=== PATIENT | female | born 1940 | race Asian ===

== ENCOUNTER 2016-03-31 22:50 | Emergency (ER) | payer MEDICARE, MEDICAID ==
[~2016-03-31] VITALS: Ht 154.9 cm; Wt 63.6 kg
[~2016-03-31 22:50] MED LIST: ATOR80TA77 PO; CARV6.252 PO; CLOP75TA28 PO; DIGO125T16 PO; DORZ10DR20 OP; FUR20 PO; INSU100V7 SUBQ; LEVO75TA4 PO; LISI-571 PO; METF500T4 PO; NITR0.4T6 SL; POTA20LI2 PO
[2016-03-31 22:57] VITALS: BP 184/49; PULSE 58; RESP 24; O2SAT 99
--- NOTE | 2016-03-31 23:01 | ED.REPORT ---
HPI-Abd Pain F 40 and Over Date of Service Mar 31, 2016 ED Provider: MD Moises This is a 75 year old female with a history of DM, CAD, CABG, anticoagulated on Coumadin brought to the ED by EMS complaining of sudden onset periumbilical abdominal pain that began 1 hour ago. Described as sharp and stabbing. Followed by one episode emesis. Denies hematemesis. Abdominal pain resolved after emesis but then returned 20 minutes later. She had another episode of emesis afterward. Abdominal pain and nausea is now resolved. Denies dysuria, fever, chills, chest pain, SOB or cough. Nursing Notes Stated Complaint: ABDOMINAL PAIN Chief Complaint: Female Abdominal Pain Nursing Notes Reviewed: Yes Allergies: Coded Allergies: potassium (Verified Allergy, Mild, Rash, 03/31/16) Only tablets. Pt takes liquid KCL without any complications. Scheduled Atorvastatin Calcium (Atorvastatin Calcium) 80 Mg Tablet 80 MG PO HS Carvedilol (Carvedilol) 6.25 Mg Tablet 6.25 MG PO BIDBL Cephalexin (Keflex) 500 Mg Capsule 500 MG PO QID Clopidogrel (Clopidogrel) 75 Mg Tablet 75 MG PO HS Digoxin (Digox) 125 Mcg Tablet 125 MCG PO DAILY Dorzolamide HCl/Timolol Maleat (Dorzolamide-Timolol Eye Drops) 10 Ml Drops 1 GTT OP TID Furosemide (Furosemide) 20 Mg Tab 20 MG PO AM Insulin Glargine (Lantus U100 Insulin Vial) 100 Unit/Ml Vial 40 UNIT SUBQ BID Levothyroxine (Levothyroxine) 75 Mcg Tablet 75 MCG PO AM Lisinopril (Lisinopril) 5 Mg Tablet 5 MG PO DAILY Metformin (Metformin) 500 Mg Tablet 1,000 MG PO BIDBL Potassium Chloride (Potassium Chloride) 20 Meq/15 Ml Liquid 1.5 TSP PO DAILY Scheduled PRN Nitroglycerin SL (Nitroglycerin SL) 0.4 Mg Tab.subl 0.4 MG SL PRN PRN PRN For Chest Pain Ondansetron ODT (Zofran ODT) 4 Mg Tablet 4 MG PO Q4H PRN PRN For Nausea General Time Seen by MD: 22:56 Chief Complaint Abdominal pain Hx Obtained From: Patient Arrived By: Ambulance Sudden in Onset?: Yes Onset Occurred: Just prior to arrival Symptom Duration: Since onset Severity: Current: No pain currently Pertinent Negative: Pt denies other symptoms Recent Healthcare: No recent doctor visit, No recent hospitalization Similar Sx Previous: No Past Medical History Past Medical History Reports: Coronary artery disease, Diabetes mellitus Past Surgical History CABG Angioplasty in 1996 Multiple cardiac stents Family History Diabetes Smoking History Never Smoker Social History Alcohol Use: Denies alcohol use Drug Use: Denies drug use Ambulatory Status Independent Review of Systems Constitutional: Denies: Chills, Fever Respiratory: Denies: Non-productive cough, Shortness of breath Cardiovascular: Denies: Chest pain GI: Reports: Abdominal pain, Nausea, Vomiting, Denies: Constipation, Diarrhea Female: Denies: Dysuria Complete sys rev & neg: except as marked. Physical Exam Vital Signs Vital Signs (First) Date Time Temp Pulse Resp B/P Pulse Ox O2 Delivery O2 Flow Rate FiO2 03/31/16 22:57 36.6 58 24 184/49 99 Room Air Initial VS: Reviewed Head / Eyes: Atraumatic, Normocephalic, PERRL ENT: Mucous membranes moist, Conjunctiva normal, No scleral icterus Neck: Supple, Non-tender, Full range of motion Extremities: Vascular intact, Neuro intact, No swelling, No tenderness Skin: Warm, Dry, No cyanosis Neurologic: Alert, Oriented, Nonfocal Psychiatric: Mood/affect normal, Behavior normal, Normal thought content General/Constitutional: Awake, Alert Respiratory / Chest: Breath sounds NL, Breath sounds = bilat, No respiratory distress, No rales, No rhonchi, No wheezing, No stridor Well-healed midline sternal scar Cardiovascular: Heart rate NL, Regular rhythm, Heart sounds NL, Peripheral circulation NL Abdomen: Soft, Non-tender, No guarding, No rebound, BS normoactive Back: Inspection NL, Non-tender, No CVA tenderness Interpretation & Diagnostics CT ABDOMEN PELVIS CONCLUSION: Probable gastroenteritis or ileus with scattered fluid levels in the bowel. Uterine mass is nonspecific, may be a fibroid, neoplasm is not excluded. Small hiatal hernia, fatty liver, and right adrenal nodule. Radiologist: uRbi Turk MD Lab Results Interpretation Result Diagram: 03/31/16 2320 03/31/16 2300 Test 03/31/16 23:00 03/31/16 23:20 03/31/16 23:40 Prothrombin Time 9.3sec (8.1-12.5) Prothromb Time International Ratio 0.87ratio Sodium Level 136mEq/L (134-144) Potassium Level 4.3mEq/L (3.5-5.2) Chloride Level 99mEq/L (97-108) Carbon Dioxide Level 25mmol/L (18-29) Blood Urea Nitrogen 28mg/dL (8-27) Creatinine 0.90mg/dL (0.57-1.00) Estimat Glomerular Filtration Rate 87mL/min (>59) Glucose Level 167mg/dL (60-99) Calcium Level 9.6mg/dL (8.5-10.1) Magnesium Level 1.8mg/dL (1.6-2.6) Total Bilirubin 0.4mg/dL (0.0-1.2) Aspartate Amino Transf (AST/SGOT) 17U/L (0-50) Alanine Aminotransferase (ALT/SGPT) 20U/L (0-32) Alkaline Phosphatase 57U/L (25-165) Total Protein 7.1g/dL (6.4-8.4) Albumin 4.5g/dL (3.4-5.0) Lipase 60U/L (13-60) White Blood Count 9.4th/mm3 (3.8-10.1) Red Blood Count 4.29mil/mm3 (3.90-5.20) Hemoglobin 12.5g/dL (12.0-15.6) Hematocrit 36.8% (35.0-46.0) Mean Corpuscular Volume 85.8fL (81-100) Mean Corpuscular Hemoglobin 29.1pg (27.0-35.0) Mean Corpuscular Hemoglobin Concent 34.0% (32.0-37.0) Red Cell Distribution Width 12.8% (12.3-15.4) Platelet Count 258bil/L (150-400) Neutrophils (%) (Auto) 52.8% (40-74) Lymphocytes (%) (Auto) 37.1% (14-46) Monocytes (%) (Auto) 7.8% (4-12) Eosinophils (%) (Auto) 1.7% (0-5) Basophils (%) (Auto) 0.4% (0-3) Hold Blue Top Tube Received (Received) Hold [place] Top Tube Received (Received) Hold [place] Top Tube Received (Received) Urine Color Yellow (YELLOW) Urine Appearance Clear (CLEAR,HAZY) Urine pH 5.5 (5.0-8.0) Urine Specific [place] 1.025 (1.003-1.035) Urine Protein Negativemg/dL (NEG,TRACE) Urine Glucose (UA) Negativemg/dL (NEGATIVE) Urine Ketones Negativemg/dL (NEGATIVE) Urine Occult Blood Trace (NEGATIVE) Urine Nitrite Negative (NEGATIVE) Urine Bilirubin Negative (NEGATIVE) Urine Urobilinogen Normalmg/dL (NORMAL) Urine Leukocyte Esterase Small (NEGATIVE) Urine RBC 0-2/hpf (0-2) Urine WBC 11-50/hpf (0-5) Urine Epithelial Cells Many/hpf (NONE-MOD) Urine Crystals None seen (NONE SEEN) Urine Bacteria None/hpf (NONE-FEW) Urine Hyaline Casts None/lpf (NONE) Urine Granular Casts None seen (NONE SEEN) Urine Waxy Casts None seen (NONE SEEN) Urine Red Blood Cell Casts None seen (NONE SEEN) Urine White Blood Cell Casts None seen (NONE SEEN) Urine Mucus None seen (None Seen) Urine Trichomonas None seen (NONE SEEN) Urine Yeast None (NONE SEEN) Urine Culture Reflexed Indicated Re-Eval/Medical Decision Med Decision/Clinical Course 75-year-old female with extensive cardiac history here with abdominal pain, nausea, vomiting which was sudden onset this evening. Differential diagnosis includes but is not limited to AAA versus gastroenteritis versus pancreatitis versus urinary tract infection. CBC is normal. CMP has mildly elevated BUNs, but otherwise unremarkable. CT scan shows mild ileus. There is no evidence of AAA. Patient was able to tolerate by mouth in the emergency department. She does have a urinary tract infection which was treated in the emergency department with Rocephin. She was discharged with a prescription for Keflex, along with a prescription for Zofran. She has been given very strict return precautions and is aware and amenable to discharge at this time with follow-up with her primary care physician. Re-Evaluation/Progress #1: Time of Eval: 01:55 Re-Evaluation/Progress Note: Re-checked, failed PO challenge. Re-Evaluation/Progress #2: Time of Eval: 03:21 Re-Evaluation/Progress Note: Tolerated PO, plan for discharge, pt understands and agrees with plan, all questions addressed. Counseled Regarding: Diagnosis, Lab results, Need for follow-up, When/why to return to ED Discharge & Departure Primary Impression: Urinary tract infection Urinary tract infection type: site unspecified Hematuria presence: without hematuria Qualified Code: N39.0 - Urinary tract infection, site not specified Additional Impression: Vomiting Vomiting type: unspecified Vomiting Intractability: non-intractable Nausea presence: with nausea Qualified Code: R11.2 - Nausea with vomiting, unspecified Disposition: Home Discharge Condition All VS Reviewed: Yes Condition: Stable Patient Instructions: Urinary Tract Infection in Women (ED) Additional Instructions: Follow-up with your primary care provider. Return to the emergency department for any new or worsening symptoms Referrals: Blair Mac (PCP) Scribe Attestation Portions of this note were transcribed by Armando Bella. I, Dr. De Leon personally performed the history, physical exam and medical decision-making; I reviewed and confirmed the accuracy of the information in the transcribed note. Signed by: brad To. 03/31/2016, 02:00. Marian De Leon MD Mar 31, 2016 23:01 ARMANDO BELLA Mar 31, 2016 23:09
[2016-03-31] MEDS ORDERED: Ondansetron 2 mg/mL 2 mL Inj IVPUSH ONE (23:10)
[2016-03-31 23:36] LABS: INR 0.87 ratio
[2016-03-31 23:43] LABS: BASOPHILS % (AUTO) 0.4 % (0-3); EOSINOPHILS % (AUTO) 1.7 % (0-5); MONOCYTES % (AUTO) 7.8 % (4-12); Mean Corpuscular Hemoglobin 29.1 pg (27.0-35.0); Mean Corpuscular Volume 85.8 fL (81-100); NEUTROPHILS % (AUTO) 52.8 % (40-74); Platelet Count 258 bil/L (150-400)
[2016-03-31 23:45] LABS: Magnesium 1.8 mg/dL (1.6-2.6)
[2016-04-01] MEDS ORDERED: HYDROmorphone 0.5 mg/0.5 mL iSecure Syringe IVPUSH ONE
[2016-04-01] MEDS ORDERED: Ondansetron 2 mg/mL 2 mL Inj IVPUSH ONE (00:05)
[2016-04-01 00:06] LABS: APPEARANCE,URINE CLEAR (CLEAR,HAZY); COLOR,URINE YELLOW (YELLOW); OCCULT BLOOD,URINE TRACE (NEGATIVE); PH,URINE 5.5 (5.0-8.0); UROBILINOGEN,URINE NORMAL (NORMAL)
[2016-04-01] MEDS ORDERED: cefTRIAXone Inj 1,000 MG in IV Premix 1 EACH IV ONE (00:15)
[2016-04-01 00:28] VITALS: BP 185/55; PULSE 64; RESP 16; O2SAT 93
[2016-04-01 00:59] VITALS: BP 176/48; PULSE 59; RESP 13; O2SAT 94
[2016-04-01] MEDS ORDERED: Promethazine Inj 12.5 MG in Dextrose 5%-Pha MIX 50 ML IV ONE (02:00)
[2016-04-01 02:25] VITALS: BP 192/45; PULSE 59; RESP 12; O2SAT 100
[2016-04-01] MEDS ORDERED: ONDA4TAB9 PO (03:19)
[2016-04-01] MEDS ORDERED: CEPH-512 PO (03:19)
[2016-04-01 03:34] VITALS: BP 150/55; PULSE 59; RESP 17; O2SAT 99
--- NOTE | 2016-04-01 09:09 | DRSVH ---
PROCEDURE: CT ABDOMEN AND PELVIS WITH CONTRAST ([id number]) INDICATIONS: 75-year-old woman with epigastric pain. TECHNIQUE: After the administration of oral and intravenous contrast, 5 mm thick sections acquired from the diap hragm to the symphysis. 5 mm coronal and sagittal reformats were acquired. For radiation dose reduc tion, the following was used: automated exposure control, adjustment of mA and/or kV according to pa tient size. COMPARISON: [facility], , CHEST 1VW (PORTABLE), 02/17/2014, 22:30. FINDINGS: Image quality: Excellent. ABDOMEN: Lung bases: Mild bibasilar atelectasis. Heart size is mildly increased. Probable mild concentric thi ckening at the GE junction versus small hiatal hernia. Solid organs: Liver and spleen are normal in size and enhancement. Gallbladder is surgically absent . Biliary system is non dilated. Pancreas enhances normally. There is a 1.2 cm right adrenal nodule which demonstrates CT density 116 HU. Kidneys demonstrate normal size and enhancement, without hydr onephrosis. There is renal cortical scar in the upper pole of the left kidney. Peritoneum and bowel: Bowel loops demonstrate normal wall thickness and caliber. Fluid-filled small bowel and colon loops are noted. There is subtle increased mucosal enhancement in colon. Appendix is identified and has normal appearance. No free fluid or air. Nodes and vessels: No retroperitoneal or mesenteric adenopathy by size criteria. Aorta and inferior vena cava are normal in size. There is moderate to severe aortic and iliac artery calcification con sistent with atherosclerosis. Miscellaneous: No ventral hernias. PELVIS: Genitourinary: Bladder wall thickness is normal. There is a 4 cm heterogeneous enhancing mass in ut erus, probably a uterine fibroid. Miscellaneous: No inguinal hernias or adenopathy. Bones: No suspicious bony lesions. No vertebral body compression fractures. Mild scoliosis. Degene rative changes in lumbar spine. IMPRESSION: 1. Fluid-filled small bowel and colon loops which demonstrate normal caliber. This finding is nonspec ific and may be secondary to enterocolitis. Recommend clinical correlation. 2. ? Concentric thickening at GE junction versus small hiatal hernia. If clinically indicated, upper endoscopy or esophagram may be helpful. 3. Moderate to severe atherosclerosis. 4. A 1.2 cm right adrenal nodule. Adrenal protocol CT or MRI is suggested for further evaluation. 5. A 4 cm mass in uterus, probably a uterine fibroid. No significant discrepancy with the information systems consultant radiology preliminary report. Dictated by: Marcelo Culp M.D. on 04/01/2016 at 8:07 Approved by: Marcelo Culp M.D. on 04/01/2016 at 9:07
== END 2016-04-01 03:35 | disposition home or self-care (01) ==
LOC: SED 22:50
DX: N39.0 Urinary tract infection, site not specified (principal); R11.2 Nausea with vomiting, unspecified; E11.9 Type 2 diabetes mellitus without complications; I25.10 Atherosclerotic heart disease of native coronary artery without angina pectoris; Z95.1 Presence of aortocoronary bypass graft; Z79.4 Long term (current) use of insulin; Z79.84 Long term (current) use of oral hypoglycemic drugs
CPT/HCPCS: 36415; 74177; 80053; 81000; 83690; 83735; 85025; 85610; 87086; 87088; 96365; 96375; 96376; 99285; J0696; J1170; J2405; Q9967

== ENCOUNTER → 2016-11-08 | Day surgery (SDC) | payer MEDICARE, MEDICAID ==
[2016-11-08] VITALS (8 sets, daily range): BP systolic 152–165; BP diastolic 48–68; PULSE 51–62; RESP 19–22; O2SAT 98
[~2016-11-08] VITALS: Ht 154.9 cm; Wt 67.2 kg
[~2016-11-08] MED LIST changes: +0.9% Sodium Chloride 250 ML BOLUS IV PRN; +0.9% Sodium Chloride 400 ML (4 HRS) IV ONE; +Atropine 1 mg/10 mL (Code) Syringe IVPUSH PRN; +CEPH-512 PO; +CYAN500 PO; +Heparin 1,000 Unit/mL 10 mL Inj ONE; +Heparin 10,000 Unit/1,000 mL NS Premix IV ONE; -METF500T4 PO; +ONDA4TAB9 PO; +Ondansetron 2 mg/mL 2 mL Inj IVPUSH PRN; +Sodium Chloride LOK Flush 10 mL Syringe IVFLUSH PRN; +fentaNYL-PF 50 mCg/mL 2 mL Inj ONE
[2016-11-08 09:34] LABS: BASOPHILS % (AUTO) 0.2 % (0-3); EOSINOPHILS % (AUTO) 1.3 % (0-5); Mean Corpuscular Hemoglobin 29.1 pg (27.0-35.0); Mean Corpuscular Volume 85.2 fL (81-100); Platelet Count 283 bil/L (150-400)
[2016-11-08 09:52] LABS: INR 0.92 ratio
--- NOTE | 2016-11-08 14:47 | DRSVH ---
PROCEDURE: ANGIO,EXTREM BILATERAL (PNL) INDICATIONS: PVD COMPARISON: [facility], CT, CT ANGIO AORTA RUNOFF, 10/11/2016, 16:02. Technique: 1. Conscious sedation for 90 minutes. 2. Left retrograde common femoral artery access. 3. Bilateral pelvic angiogram. 4. Right lower extremity angiogram. 5. Balloon angioplasty of the right peroneal artery. 6. Balloon angioplasty of the right posterior tibial artery. 7. Balloon angioplasty the tibioperoneal trunk. 8. Balloon angioplasty of multiple focal stenoses within the right superficial femoral artery. 9. Balloon angioplasty of the right common iliac artery. 10. Sheath removal, external closure device placement, and hemostasis. The indications, alternatives, benefits, risks, and complications of the procedure were explained to the patient and her daughter. Informed written consent was obtained and placed in the chart. The pat ient was brought to the angiography suite, and conscious sedation was administered intravenously by [facility] nursing staff, while continuous cardiorespiratory monitoring was performed. Maximum sterile barrier technique was employed per standard protocol, including hand hygiene, cap, ma sk, sterile gown and gloves, and 2% chlorhexidine. One percent lidocaine was used to anesthetize the skin over the area of interest. Using a micropuncture kit, the left common femoral artery was accesse d in a retrograde fashion. The micropuncture sheath was exchanged for a short 5 Latvian sheath. A 4 Fr ench pigtail catheter was advanced with the tip in the inferior abdominal aorta. Pelvic arteriogram w as performed. Next, the pigtail catheter was exchanged for a 5 Latvian Sos catheter which was used to advance a wire into the right common iliac. The .035 J-wire was exchanged for a glide advantage wire which was advanced into the operative artery. The short sheath was exchanged for a 6 Cain sheath, th e tip of which was placed in the external iliac artery. Right lower extremity arteriogram was perform ed. Next, a 5 Latvian angled catheter was used to advance an 018 wire into the right posterior tibial artery. Balloon angioplasty was performed for a focal high-grade stenosis at the origin of the right posterior tibial artery with a 3 mm high pressure balloon. Next, balloon angioplasty was performed fo r a high-grade stenosis at the origin of the right peroneal artery with a 3 mm high-pressure balloon. Balloon angioplasty was also performed on the tibioperoneal trunk at the same balloon which demonstr ated diffuse, moderate stenosis throughout. Completion arteriogram was performed. Next, balloon angioplasty was performed for a focal moderate high-grade stenosis of the distal right superficial femoral artery with a 5 mm x 40 mm high-pressure balloon. Balloon angioplasty was perform ed were superiorly within the right superficial femoral artery for a segmental region of multifocal m oderate stenosis with the same 5 mm x 40 mm high-pressure balloon. Completion arteriogram was perform ed. Next, balloon angioplasty was performed within the right common iliac artery with a 7 mm x 40 mm high -pressure balloon for a moderate stenosis. Completion arteriogram was performed. FINDINGS: Right thigh: Diffuse, mild to moderate stenosis is present within the right common iliac artery. The right internal and external iliac arteries are widely patent. The right profunda is patent. A segment al region of moderate multifocal stenosis is present within the proximal right superficial femoral ar zuhair. A focal moderate to high-grade stenosis is present within the distal right superficial femoral artery. The popliteal artery is patent. Diffuse narrowing is present throughout the tibioperoneal alfredo nk. The right anterior tibial artery is occluded near the origin. A focal high-grade stenosis is pres ent at the origin of the peroneal artery and a focal high-grade stenosis is present at the origin of the posterior tibial artery. A focal high-grade stenosis is present within the central portion of the posterior tibial artery. Completion arteriogram demonstrates resolution of the focal high-grade stenoses at the origins of the right posterior tibial and peroneal arteries. There is resolution of the multifocal stenosis within the tibioperoneal trunk. There is resolution of the focal stenosis within the distal right superficia l femoral artery. There is resolution of the multifocal moderate stenoses within the proximal superfi cial femoral artery. There is improved flow to the [id number] stenosis within the right common iliac artery after balloon angioplasty. IMPRESSION: 1. Successful angioplasty of a focal high-grade stenosis within the right peroneal artery. 2. Successful angioplasty of a focal high-grade stenosis within the right posterior tibial artery. 3. Successful angioplasty of moderate, diffuse narrowing of the right tibioperoneal trunk. 4. Successful angioplasty of a distal, focal right SFA stenosis. 4. Successful angioplasty of the right common iliac artery. Dictated by: Na Gifford M.D. on 11/08/2016 at 14:36 Approved by: Na Gifford M.D. on 11/08/2016 at 14:45
--- NOTE | 2016-11-08 15:06 | NUR ---
Discharge Pt had stable recovery post peripheral angioplasty, VSS on RA, groin site soft non tender. Pt and family stated verbal understanding of discharge instructions, Pt left with personal belongings, discharge paperwork, IV dc'd intact at approximately 1500
== END | disposition home or self-care (01) ==
LOC: SOUO 01:19
PROVIDERS: ATTEND Radiology Vascular & Interventional Radiology
DX: I70.211 Atherosclerosis of native arteries of extremities with intermittent claudication, right leg (principal); I70.8 Atherosclerosis of other arteries; E11.9 Type 2 diabetes mellitus without complications; I10 Essential (primary) hypertension; E03.9 Hypothyroidism, unspecified; Z95.1 Presence of aortocoronary bypass graft; Z95.5 Presence of coronary angioplasty implant and graft; Z79.4 Long term (current) use of insulin; Z79.84 Long term (current) use of oral hypoglycemic drugs

== ENCOUNTER → 2016-12-05 | Day surgery (SDC) | payer MEDICARE, MEDICAID ==
[~2016-12-05] MED LIST changes: -0.9% Sodium Chloride 250 ML BOLUS IV PRN; -0.9% Sodium Chloride 400 ML (4 HRS) IV ONE; -Atropine 1 mg/10 mL (Code) Syringe IVPUSH PRN; -CEPH-512 PO; -Heparin 1,000 Unit/mL 10 mL Inj ONE; -Heparin 10,000 Unit/1,000 mL NS Premix IV ONE; +NITR0.4T38 SL; -NITR0.4T6 SL; -Ondansetron 2 mg/mL 2 mL Inj IVPUSH PRN; -POTA20LI2 PO; -Sodium Chloride LOK Flush 10 mL Syringe IVFLUSH PRN; -fentaNYL-PF 50 mCg/mL 2 mL Inj ONE
--- NOTE | 2016-12-05 07:31 | NUR ---
On admission patient states that she had a glassful of orange juice for blood sugar in 70's. Dr Gifford informed procedure needs to be rescheduled.Blood sugar on admit 76, patient given additional orange juice and voucher to obtain breakfast. she is amenable to rescheduling.
== END | disposition home or self-care (01) ==
LOC: SOUO 00:05
PROVIDERS: ATTEND Radiology Vascular & Interventional Radiology
DX: I73.9 Peripheral vascular disease, unspecified (principal); Z53.09 Procedure and treatment not carried out because of other contraindication